=== PATIENT | female | born 1950 | race Caucasian/White ===

== ENCOUNTER 2018-10-14 17:20 | Emergency (ER) | payer OTHER ==
[~2018-10-14] VITALS: Ht 157.5 cm; Wt 104.3 kg
[2018-10-14 18:20] VITALS: BP 141/67
[2018-10-14] MEDS ORDERED: HYDROcodone/APAP 5/325MG 1 TAB TABLET PO ONE (18:45)
--- NOTE | 2018-10-14 19:22 | PHYS DOC ---
Adult General Chief Complaint Chief Complaint: KNEE SWELLING HPI HPI Patient is a 68 year old female who presents with states she stood up last night out of her chair began having a steering hot sharp pain in her right knee. Patient states she's also had weeks of right hip pain also. Patient's main complaint today is her right knee. The knee does not look swollen compared to the left knee. She rates her pain a 5 out of 10 after movement. The pain does not radiate. Review of Systems Review of Systems Constitutional: Denies fever or chills [] Eyes: Denies change in visual acuity, redness, or eye pain [] HENT: Denies nasal congestion or sore throat [] Respiratory: Denies cough or shortness of breath [] Cardiovascular: No additional information not addressed in HPI [] GI: Denies abdominal pain, nausea, vomiting, bloody stools or diarrhea [] : Denies dysuria or hematuria [] Musculoskeletal: Denies back pain. Right knee joint pain [] Integument: Denies rash or skin lesions [] Neurologic: Denies headache, focal weakness or sensory changes [] Endocrine: Denies polyuria or polydipsia [] All other systems were reviewed and found to be within normal limits, except as documented in this note. Current Medications Current Medications Current Medications Medications (Trade) Dose Ordered Sig/Tammie Start Time Stop Time Status Last Admin Dose Admin Acetaminophen/ Hydrocodone Bitart (Lortab 5/325) 1 tab 1X ONCE 10/14/18 18:45 10/14/18 18:47 DC 10/14/18 19:30 1 TAB Allergies Allergies Allergies Coded Allergies Type Severity Reaction Last Updated Verified Penicillins Allergy Intermediate 10/14/18 Yes Physical Exam Physical Exam Constitutional: Well developed, well nourished, no acute distress, non-toxic appearance. [] HENT: Normocephalic, atraumatic, bilateral external ears normal, oropharynx moist, no oral exudates, nose normal. [] Eyes: PERRLA, EOMI, conjunctiva normal, no discharge. [] Neck: Normal range of motion, no tenderness, supple, no stridor. [] Cardiovascular:Heart rate regular rhythm, no murmur [] Lungs & Thorax: Bilateral breath sounds clear to auscultation [] Abdomen: Bowel sounds normal, soft, no tenderness, no masses, no pulsatile masses. [] Skin: Warm, dry, no erythema, no rash. [] Back: No tenderness, no CVA tenderness. [] Extremities: No tenderness, no cyanosis, no clubbing, ROM intact, bilateral pedal 1+ edema. [] Neurologic: Alert and oriented X 3, normal motor function, normal sensory function, no focal deficits noted. [] Psychologic: Affect normal, judgement normal, mood normal. [] Current Patient Data Vital Signs Vital Signs Date Time Temp Pulse Resp B/P (MAP) Pulse Ox O2 Delivery O2 Flow Rate FiO2 10/14/18 19:30 16 98 Room Air 10/14/18 18:20 98.0 81 141/67 (91) 98.0 EKG EKG [] Radiology/Procedures Radiology/Procedures [] Course & Med Decision Making Course & Med Decision Making Patient is a 68 year old female who presents with states she stood up last night out of her chair began having a searing hot sharp pain in her right knee. Patient states she's also had weeks of right hip pain also. Patient's main complaint today is her right knee. The knee does not look swollen compared to the left knee. She rates her pain a 5 out of 10 after movement. The pain does not radiate. Alert and oriented. Speaks in full clear sentences. Patient's been using a cane to help her walk since the pain started last night. Patient states she last took 2 Tylenol and 2 ibuprofen at 1430. Patient has full range of motion of her knee but is very painful when she straightens the leg. Patient can bear weight on the leg. Patient denies any other injury or injury to her right hip that has recently started to hurt her. Pedal pulses present with bilateral 1+ edema. Skin pink warm and dry. No tenderness with palpation. Hip x-ray and knee x-ray show no obvious acute findings but does show some arthritis. X-rays read by Dr. Samayoa. Neal Disclaimer Neal Disclaimer This electronic medical record was generated, in whole or in part, using a voice recognition dictation system. Departure Departure Impression: Primary Impression: Hip pain Additional Impression: Knee pain Disposition: HOME, SELF-CARE Condition: STABLE Referrals: UNKNOWN PCP NAME (PCP) Patient Instructions: Arthritis, Degenerative-Brief, Hip Pain, Knee Pain Additional Instructions: Follow-up with her primary care provider. Take medication as prescribed. Try using a heating pad. Scripts Hydrocodone/Apap 5-325 (NORCO 5-325 TABLET) 1 Each Tablet 1 TAB PO PRN Q6HRS PRN for PAIN, #6 TAB 0 Refills Prov: ANDREW JOHNS APRN 10/14/18 Problem Qualifiers Primary Impression: Hip pain Laterality: right Qualified Codes: M25.551 - Pain in right hip Additional Impression: Knee pain Chronicity: acute Laterality: right Qualified Codes: M25.561 - Pain in right knee ANDREW JOHNS APRN Oct 14, 2018 19:22
[2018-10-14] MEDS ORDERED: HYDR-3164 PO (21:24)
--- NOTE | 2018-10-14 22:37 | RAD ---
KNEE RIGHT 3V History: RIGHT KNEE PAIN AFTER STANDING UP X1 DAY AGO Comparison: None. Findings: 3 views of the right knee are submitted. No acute fracture or dislocation is identified. There is mild tricompartmental osteoarthritic change. There is some vascular calcification. There is superior patellar enthesophyte. Impression: 1. No acute fracture is identified. Electronically signed by: Cj Delong MD (10/14/2018 10:34 PM) [facility]
--- NOTE | 2018-10-14 22:46 | RAD ---
HIP RIGHT 2 VIEW History: CHRONIC RIGHT HIP PAIN. INCREASED PAIN AFTER FALL X1 DAY AGO Comparison: None. Findings: 2 views of the right hip are submitted. No acute fracture or dislocation is identified by radiographs. Impression: 1. No acute radiographic abnormality is identified. Electronically signed by: Cj Delong MD (10/14/2018 10:43 PM) [facility]
== END 2018-10-14 22:01 | disposition home or self-care (01) ==
LOC: ER 17:20
DX: M25.551 Pain in right hip (principal); M25.561 Pain in right knee; Z88.0 Allergy status to penicillin
CPT/HCPCS: 73502; 73562; 99283

== ENCOUNTER 2019-10-03 16:52 | Observation (INO) | payer MEDICARE, OTHER ==
[~2019-10-03] VITALS: Ht 160 cm; Wt 109.0 kg
[~2019-10-03 16:52] MED LIST: HYDR-3164 PO
[2019-10-03] MEDS ORDERED: IV NORMAL SALINE 1000ML BAG 1,000 ML IV ONE ×3 (17:45→19:00)
[2019-10-03] MEDS ORDERED: ALBUTEROL SULFATE 2.5 MG/3 ML NEBU. NEB ONE (17:45)
[2019-10-03] MEDS ORDERED: ACETAMINOPHEN 500 MG TABLET PO ONE (17:45)
--- NOTE | 2019-10-03 17:48 | PHYS DOC ---
Past Medical History Past Medical History: Asthma, Depression, Diabetes-Type II, High Cholesterol, Hypertension, Other Additional Past Medical Histor: CHRONIC SOA/CHRONIC CHEST PAIN Past Surgical History: Cholecystectomy, Tubal ligation, Other Additional Past Surgical Histo: bilateral knee scopes Smoking Status: Never Smoker Alcohol Use: None Drug Use: None Adult General Chief Complaint Chief Complaint: MULTIPLE COMPLAINTS [place] [employer] [facility] HPI Patient is a 69 year old female, accompanied by her daughter, who presents to the emergency department with complaints of shaking, chills, and fever since 2:00 this afternoon. Patient states that she also experienced an episode of nausea and vomiting today. She reports that she feels like she might have a urinary tract infection. However, she denies any dysuria, hematuria, increased urinary frequency, or abnormal odor to her urine. Patient denies any ear pain, headache, sore throat, palpitations, swelling of extremities, wheezing, diarrhea, or abdominal pain. She reports that she has problems with chronic c hest pain and shortness of breath and states that she has had a nonproductive cough for over a month and a half. She currently denies any chest pain or shortness of breath. She currently rates her pain a 4 out of 10 on the pain scale, she denies any alleviating factors. Patient states she does have diabetes and has had her blood sugar running in the 200s for the past month with the onset of her cough, she denies any polyphagia. Patient reports polydipsia. Review of Systems Review of Systems Complete ROS is negative unless otherwise noted in HPI. Current Medications Current Medications Current Medications Medications (Trade) Dose Ordered Sig/Tammie Start Time Stop Time Status Last Admin Dose Admin Acetaminophen (Tylenol) 1,000 mg 1X ONCE 10/03/19 17:45 10/03/19 17:46 DC 10/03/19 17:46 1,000 MG Albuterol Sulfate (Ventolin Neb Soln) 2.5 mg 1X ONCE 10/03/19 17:45 10/03/19 17:46 DC 10/03/19 17:55 2.5 MG Sodium Chloride 1,000 ml @ 1,000 mls/hr 1X ONCE 10/03/19 17:45 10/03/19 18:44 DC 10/03/19 17:47 1,000 MLS/HR Allergies Allergies Allergies Coded Allergies Type Severity Reaction Last Updated Verified Penicillins Allergy Intermediate 10/14/18 Yes Physical Exam Physical Exam See Above Constitutional: Well developed, well nourished, no acute distress, non-toxic appearance, obese. [] HENT: Normocephalic, atraumatic, bilateral external ears normal, oropharynx dry, no oral exudates, nose normal. [] Eyes: PERRLA, EOMI, conjunctiva normal, no discharge. [] Neck: Normal range of motion, no stridor. [] Cardiovascular:Heart rate regular tachycardic rhythm, no murmur [] Lungs & Thorax: Bilateral breath sounds clear to auscultation, Respirations ev en and unlabored, no retractions, no respiratory distress [] Abdomen: Bowel sounds normal, soft, no tenderness, no masses, no pulsatile masses. [] Skin: Flushed, hot, dry, no rash. [] Back: Bilateral CVA tenderness. [] Extremities: No cyanosis, ROM intact, no edema. [] Neurologic: Alert and oriented X 3, no focal deficits noted. [] Psychologic: Affect normal, judgement normal, mood normal. [] Current Patient Data Vital Signs Vital Signs Date Time Temp Pulse Resp B/P (MAP) Pulse Ox O2 Delivery O2 Flow Rate FiO2 10/03/19 18:15 118 147/65 (92) 97 Room Air 10/03/19 16:56 99.7 20 99.7 Lab Values Laboratory Tests Test 10/03/19 16:56 10/03/19 17:15 10/03/19 17:37 Urine Collection Type Unknown Urine Color Yellow Urine Clarity Clear Urine pH 6.0 Urine Specific [place] 1.015 Urine Protein 30 mg/dL (NEG-TRACE) Urine Glucose (UA) Negative mg/dL (NEG) Urine Ketones (Stick) Negative mg/dL (NEG) Urine Blood Trace (NEG) Urine Nitrite Positive (NEG) Urine Bilirubin Negative (NEG) Urine Urobilinogen Dipstick 0.2 mg/dL (0.2 mg/dL) Urine Leukocyte Esterase Moderate (NEG) Urine RBC 1-2 /HPF (0-2) Urine WBC 5-10 /HPF (0-4) Urine Squamous Epithelial Cells Mod /LPF Urine Bacteria Many /HPF (0-FEW) Urine Mucus Slight /LPF White Blood Count 11.7 x10^3/uL (4.0-11.0) H Red Blood Count 3.46 x10^6/uL (3.50-5.40) L Hemoglobin 10.4 g/dL (12.0-15.5) L Hematocrit 30.6 % (36.0-47.0) L Mean Corpuscular Volume 88 fL (79-100) Mean Corpuscular Hemoglobin 30 pg (25-35) Mean Corpuscular Hemoglobin Concent 34 g/dL (31-37) Red Cell Distribution Width 13.8 % (11.5-14.5) Platelet Count 228 x10^3/uL (140-400) Neutrophils (%) (Auto) 85 % (31-73) H Lymphocytes (%) (Auto) 9 % (24-48) L Monocytes (%) (Auto) 4 % (0-9) Eosinophils (%) (Auto) 2 % (0-3) Basophils (%) (Auto) 1 % (0-3) Neutrophils # (Auto) 9.9 x10^3/uL (1.8-7.7) H Lymphocytes # (Auto) 1.1 x10^3/uL (1.0-4.8) Monocytes # (Auto) 0.4 x10^3/uL (0.0-1.1) Eosinophils # (Auto) 0.2 x10^3/uL (0.0-0.7) Basophils # (Auto) 0.1 x10^3/uL (0.0-0.2) Segmented Neutrophils % 66 % (35-66) Band Neutrophils % 23 % (0-9) H Lymphocytes % 9 % (24-48) L Eosinophils % 1 % (0-5) Basophils % 1 % (0-3) Toxic Granulation Slight Platelet Estimate Adequate (ADEQUATE) Polychromasia Slight Prothrombin Time 13.9 SEC (11.7-14.0) Prothrombin Time INR 1.1 (0.8-1.1) Activated Partial Thromboplast Time 25 SEC (24-38) D-Dimer (Yuliya) 1.03 ug/mlFEU (0.00-0.50) H Sodium Level 141 mmol/L (136-145) Potassium Level 4.3 mmol/L (3.5-5.1) Chloride Level 107 mmol/L (98-107) Carbon Dioxide Level 22 mmol/L (21-32) Anion Gap 12 (6-14) Blood Urea Nitrogen 29 mg/dL (7-20) H Creatinine 1.3 mg/dL (0.6-1.0) H Estimated GFR (Cockcroft-Gault) 40.9 BUN/Creatinine Ratio 22 (6-20) H Glucose Level 210 mg/dL (70-99) H Lactic Acid Level 3.2 mmol/L (0.4-2.0) H Calcium Level 8.8 mg/dL (8.5-10.1) Magnesium Level 1.2 mg/dL (1.8-2.4) L Total Bilirubin 0.4 mg/dL (0.2-1.0) Aspartate Amino Transferase (AST) 10 U/L (15-37) L Alanine Aminotransferase (ALT) 17 U/L (14-59) Alkaline Phosphatase 106 U/L (46-116) Creatine Kinase 40 U/L (26-192) Creatine Kinase MB (Mass) < 0.5 ng/mL (0.0-3.6) Creatine Kinase MB Relative Index % (0-4) Troponin I Quantitative < 0.017 ng/mL (0.000-0.055) OI-Glc-A-Type Natriuretic Peptide 238 pg/mL (0-124) H Total Protein 6.4 g/dL (6.4-8.2) Albumin 3.1 g/dL (3.4-5.0) L Albumin/Globulin Ratio 0.9 (1.0-1.7) L Influenza Type A Antigen Negative (NEGATIVE) Influenza Type B Antigen Negative (NEGATIVE) Laboratory Tests 10/03/19 17:15 Laboratory Tests 10/03/19 17:15 EKG EKG 1713-sinus tachycardia, rate of 113, QRS(T) Contour abnormality no STEMI, read by Dr. Mcgovern Radiology/Procedures Radiology/Procedures PROCEDURE: CHEST PA & LATERAL Exam: Chest 2 views INDICATION: Short of air, cough for one month TECHNIQUE: Frontal and lateral views the chest Comparisons: None FINDINGS: The cardiomediastinal silhouette and pulmonary vessels are within normal limits. The lung and pleural spaces are clear. IMPRESSION: No acute cardiopulmonary process. PROCEDURE: LUNG VENT/PERFUSION SCAN(VQ) Lung scan 10/03/2019 CLINICAL HISTORY: Elevated d-dimer. Shortness of breath. TECHNIQUE: After the administration of 13 mCi of xenon-133 gas, ventilation images of both lungs were obtained using the gamma camera. After the intravenous administration of 5.5 mCi of technetium 99m MAA, perfusion images of both lungs were obtained using the gamma camera. FINDINGS: Comparison is made to PA and lateral chest radiographs performed earlier today. These demonstrate no acute pulmonary infiltrate. Homogeneous ventilation/perfusion to both lungs is seen. No ventilation or perfusion defect is noted. These findings are consistent with a normal lung scan. IMPRESSION: Normal lung scan. [] Course & Med Decision Making Course & Med Decision Making Pertinent Labs and Imaging studies reviewed. (See chart for details) Patient is a 71-year-old female who presented to the emergency room multiple complaints. Work-up included a CBC, CMP, UA, chest x-ray, d-dimer, cardiac enzymes, BNP, PT/INR, and V/Q chest scan CBC revealed a white blood cell count of 11.7, RBCs of 3.46, Hgb 10.4, HCT 30.6, otherwise unremarkable; PT and INR within normal limits, d-dimer elevated at 1.03; CMP revealed a BUN of 29, creatinine of 1.3, glucose of 210, lactic acid of 3.2, magnesium of 1.2, BNP of 238, normal CK index and troponin; Urinalysis revealed a nitrite positive UTI with 5-10 white blood cells and 1-2 red blood cells present; rapid influenza testing was negative. Chest x-ray was normal as was the ventilation perfusion scan. Patient was given a one-time dose of Lovenox while awaiting VQ scan she was also given 400 mg of Cipro in the emergency department, 2000 mL of normal saline, and normal saline at 150 an hour was initiated. 1725-spoke with Dr. Demarco who is the admitting physician, and care was assumed following discussion of patient will admit patient as observation status to [place] d/surg for urinary tract infection and sepsis. Dr. Demarco aware of pending imaging results related to the elevated d-dimer, will notify of any abnormal results. Patient's vital signs stable. Patient remains afebrile, appears nontoxic, respirations even and unlabored. Patient will be admitted to the med/surg floor. Patient's case and plan of care also discussed with Dr. Pro [] Neal Disclaimer Neal Disclaimer This electronic medical record was generated, in whole or in part, using a voice recognition dictation system. Departure Departure Impression: Primary Impression: UTI (urinary tract infection) Additional Impression: Sepsis Disposition: 09 ADMITTED INPATIENT Admitting Physician: Babs Demarco Condition: STABLE Referrals: KARAN PEREZ MD (PCP) Problem Qualifiers Primary Impression: UTI (urinary tract infection) Urinary tract infection type: site unspecified Hematuria presence: without hematuria Qualified Codes: N39.0 - Urinary tract infection, site not specified Additional Impression: Sepsis Sepsis type: sepsis due to unspecified organism Sepsis acute organ dysfunction status: unspecified Qualified Codes: A41.9 - Sepsis, unspecified organism DOROTHY NOBLES [employer] Oct 03, 2019 17:48
--- NOTE | 2019-10-03 17:52 | RAD ---
Exam: Chest 2 views INDICATION: Short of air, cough for one month TECHNIQUE: Frontal and lateral views the chest Comparisons: None FINDINGS: The cardiomediastinal silhouette and pulmonary vessels are within normal limits. The lung and pleural spaces are clear. IMPRESSION: No acute cardiopulmonary process. Electronically signed by: Ambar Ramirez MD (10/03/2019 5:49 PM) [id number]
[2019-10-03 17:56] LABS: BASO # 0.1 x10^3/uL (0.0-0.2); BASO % 1 % (0-3); EOS # 0.2 x10^3/uL (0.0-0.7); EOS % 2 % (0-3); HEMATOCRIT 30.6 % (36.0-47.0); HEMOGLOBIN 10.4 g/dL (12.0-15.5); LYMPH # 1.1 x10^3/uL (1.0-4.8); LYMPH % 9 % (24-48); MEAN CORPUSCULAR HEMOGLOBIN 30 pg (25-35); MEAN CORPUSCULAR HGB CONC 34 g/dL (31-37); MEAN CORPUSCULAR VOLUME 88 fL (79-100); MONO # 0.4 x10^3/uL (0.0-1.1); MONO % 4 % (0-9); NEUT # 9.9 x10^3/uL (1.8-7.7); NEUT % 85 % (31-73); PLATELET COUNT 228 x10^3/uL (140-400); RED BLOOD COUNT 3.46 x10^6/uL (3.50-5.40); RED CELL DISTRIBUTION WIDTH 13.8 % (11.5-14.5); WHITE BLOOD COUNT 11.7 x10^3/uL (4.0-11.0)
[2019-10-03 18:05] LABS: PROTHROMBIN TIME PATIENT 13.9 SEC (11.7-14.0)
[2019-10-03 18:08] LABS: CALCIUM 8.8 mg/dL (8.5-10.1); CREATININE 1.3 mg/dL (0.6-1.0); GFR 40.9; POTASSIUM 4.3 mmol/L (3.5-5.1)
[2019-10-03 18:14] LABS: ALBUMIN 3.1 g/dL (3.4-5.0); ALBUMIN/GLOBULIN RATIO 0.9 (1.0-1.7); MAGNESIUM 1.2 mg/dL (1.8-2.4); TOTAL BILIRUBIN 0.4 mg/dL (0.2-1.0); TOTAL PROTEIN 6.4 g/dL (6.4-8.2)
[2019-10-03 18:15] LABS: D-DIMER 1.03 ug/mlFEU (0.00-0.50)
[2019-10-03 18:18] LABS: BILIRUBIN,URINE NEGATIVE (NEG); CLARITY,URINE CLEAR; COLOR,URINE YELLOW; NITRITE,URINE POSITIVE (NEG); PROTEIN,URINE 30 mg/dL (NEG-TRACE); UROBILINOGEN,URINE 0.2 mg/dL (0.2 mg/dL)
[2019-10-03 18:29] LABS: BACTERIA,URINE MANY /HPF (0-FEW); SQUAMOUS EPITHELIAL CELL,UR MOD /LPF
[2019-10-03 18:36] LABS: INFLUENZA A PATIENT NEGATIVE (NEGATIVE); INFLUENZA B PATIENT NEGATIVE (NEGATIVE)
[2019-10-03 18:41] LABS: CREATINE KINASE 40 U/L (26-192)
[2019-10-03 18:44] LABS: % BANDS 23 % (0-9); % BASOS 1 % (0-3); % EOS 1 % (0-5); % LYMPHS 9 % (24-48); % SEGS 66 % (35-66)
[2019-10-03 18:45] LABS: PLT ESTIMATE ADEQUATE (ADEQUATE); POLYCHROMASIA SLIGHT
[2019-10-03 18:46] LABS: TOXIC GRANULATION SLIGHT
[2019-10-03] MEDS ORDERED: CIPROFLOXACIN 400MG PREMIX 200 ML IV ONE (19:00)
--- NOTE | 2019-10-03 19:21 | EKG ---
[facility] [address] [place] [address] Test Date: 2019-10-03 Test Time: 17:13:23 Pat Name: ILAN REA Department: Room: Gender: F Head Pumper: : [id number] Requested By: DOROTHY NOBLES Order Number: [id number] Reading MD: Measurements Intervals [place] Rate: 113 P: -114 HI: 138 QRS: 45 QRSD: 68 T: 50 QT: 364 QTc: 506 Interpretive Statements SINUS TACHYCARDIA QRS(T) CONTOUR ABNORMALITY CONSIDER ANTEROSEPTAL MYOCARDIAL DAMAGE POSSIBLY ABNORMAL ECG RI6.01 No previous ECG available for comparison
--- NOTE | 2019-10-03 21:18 | RAD ---
Lung scan 10/03/2019 CLINICAL HISTORY: Elevated d-dimer. Shortness of breath. TECHNIQUE: After the administration of 13 mCi of xenon-133 gas, ventilation images of both lungs were obtained using the gamma camera. After the intravenous administration of 5.5 mCi of technetium 99m MAA, perfusion images of both lungs were obtained using the gamma camera. FINDINGS: Comparison is made to PA and lateral chest radiographs performed earlier today. These demonstrate no acute pulmonary infiltrate. Homogeneous ventilation/perfusion to both lungs is seen. No ventilation or perfusion defect is noted. These findings are consistent with a normal lung scan. IMPRESSION: Normal lung scan. Electronically signed by: Kodi Fodr MD (10/03/2019 9:15 PM) [id number]
--- NOTE | 2019-10-03 22:19 | NUR ---
Pt. just arrived from ED via w/c with UTI and sepsis. She is A/O x4 and will make needs known. Orientated to unit. Daughter @ BS.
[2019-10-03] MEDS ORDERED: LOSA-73 PO (22:49)
[2019-10-03] MEDS ORDERED: INSU100V31 SQ ×2 (22:49)
[2019-10-03] MEDS ORDERED: INSU100V13 SQ (22:49)
[2019-10-03] MEDS ORDERED: INSU100C4 SQ (22:49)
[2019-10-03] MEDS ORDERED: SERT50TA PO (22:49)
[2019-10-03] MEDS ORDERED: GABA300C18 PO (22:49)
[2019-10-03] MEDS ORDERED: CRESTOR5 MG PO (22:49)
[2019-10-03 23:00] VITALS: BP 113/42
[2019-10-03] MEDS ORDERED: ONDANSETRON ODT 4 MG TAB.RAPDIS. PO PRN (23:00)
[2019-10-03] MEDS ORDERED: INSULIN GLARGINE SYRINGE. SQ SCH (23:15)
[2019-10-03] MEDS ORDERED: MAGNESIUM SULFATE 2GM 50 ML IV ONE (23:15)
[2019-10-03] MEDS ORDERED: SERTRALINE 50 MG TABLET. PO SCH (23:15)
[2019-10-03] MEDS ORDERED: GABAPENTIN 100 MG CAPSULE. PO SCH (23:15)
[2019-10-03] MEDS ORDERED: INSULIN DETEMIR 90 UNIT SQ PRN (23:15)
[2019-10-03] MEDS: ACETAMINOPHEN 325 MG TABLET. PO PRN (23:59)
[2019-10-04 03:00] VITALS: BP 124/43
[2019-10-04] MEDS ORDERED: INSULIN LISPRO 300 UNITS/3 ML VIAL. SQ SCH ×4 (07:00→17:00)
[2019-10-04 07:55] LABS: CALCIUM 8.1 mg/dL (8.5-10.1); CREATININE 1.1 mg/dL (0.6-1.0); GFR 49.5; MAGNESIUM 1.7 mg/dL (1.8-2.4); POTASSIUM 3.8 mmol/L (3.5-5.1)
--- NOTE | 2019-10-04 07:56 | PDOC1 ---
H & P. HPI: Ms. Gallagher is a 69-year-old female with past medical history of type 2 diabetes, chronic kidney disease stage II, hypertension, peripheral artery disease, chronic fatigue, morbid obesity, who presented to the emergency room yesterday for feeling unwell, chills, fatigue, nausea, vomiting, and subjective fever at home. She reported feeling as though she may have a UTI, although she denied dysuria, frequency, urgency. She reports a history of recurrent UTIs that were lacking for symptoms apart from feeling unwell. In the emergency room she was noted to be mildly tachycardic, with Tmax of 99.7. Her labs were remarkable for positive nitrites and leukoesterase on UA with small amount of blood, mild leukocytosis with left shift, elevated lactic acid at 3.2, negative flu swab, mildly elevated d-dimer. Due to the elevated d-dimer, a CT chest was unable to be performed, I assume due to mild CKD. A VQ scan was performed and was negative for PE. She was given Cipro and IV fluids in the emergency room and was admitted for further evaluation and management. She is feeling much better this morning and feels comfortable to follow up soon early next week and go home with PO meds as we wait for urine culture results. ROS: Constitutional: Admits subjective fever, fatigue, chills HEENT: Denies sore throat, vision changes Cardio: Denies chest pain, dyspnea with exertion, syncope, palpitations, edema Pulmonary: Denies shortness of breath, cough, wheezing GI: Admits nausea, denies vomiting, diarrhea, constipation : Denies dysuria, frequency, urgency, incontinence Skin: Denies new lesions Neuro: Denies weakness, paresthesias PMH: As above. FAMILY HX: Family history significant for diabetes, hypertension, chronic kidney disease, asthma, alcoholism. SOCIAL HX: Never smoker, no significant alcohol or drug use. SURGICAL HX: Status post cholecystectomy, tubal ligation MEDS: Reviewed and reconciled ALLERGIES: Reviewed PE: Alert, oriented, no acute distress EOMI, sclera non-icteric Neck supple RRR, no murmur CTAB, no wheezes, crackles or rhonchi Soft, NT, ND, normal bowel sounds, no rebound, guarding. Negative Baptiste's sign. No edema, cyanosis. Normal capillary refill. Calm, cooperative, mood/affect within normal limits ASSESSMENT & PLAN: Acute UTI likely Lactic acidosis, resolved Hypomagnesemia, resolved Type 2 diabetes Chronic kidney disease Hypertension Peripheral artery disease Chronic fatigue Morbid obesity Discussed option to follow up closely as outpt with dc today with PO Cipro pending urine culture/sensitivities and pt is agreeable to this plan. She is feeling well and all questions were answered. CHIP CORTEZ MD Oct 04, 2019 07:56
[2019-10-04 07:59] VITALS: BP 96/40
[2019-10-04 08:23] VITALS: BP 96/40
[2019-10-04] MEDS ORDERED: ONDA4TAB12 PO (08:47)
[2019-10-04] MEDS ORDERED: CIPR250T30 PO (08:47)
[2019-10-04] MEDS ORDERED: CIPROFLOXACIN 200MG PREMIX 100 ML IV SCH (09:00)
[2019-10-04] MEDS ORDERED: LOSARTAN POTASSIUM 50 MG TABLET. PO SCH (09:00)
[2019-10-04] MEDS: ACETAMINOPHEN 325 MG TABLET. PO PRN (10:10)
--- NOTE | 2019-10-04 11:57 | NUR ---
Discharge Note: ILAN REA [address] Discharge instructions and discharge home medications reviewed with Patient and a copy given. All questions have been answered and understanding verbalized. The following instructions and handouts were given: patient visit report, medication information, education. Discontinued lines and drains: peripheral IV, tip intact. Patient discharged to home with self care via private vehicle. Patient left unit awake, in stable condition, with all personal belongings. Rx called to [facility], [place] with pharmacist (Fredy).
[2019-10-04] MEDS ORDERED: ROSUVASTATIN CALCIUM 25 MG PO SCH (21:00)
== END 2019-10-04 11:55 | disposition home or self-care (01) ==
LOC: ER 16:52 → 5 SOUTH 18:52
PROVIDERS: ADMIT Family Medicine; ATTEND Family Medicine
DX: A41.9 Sepsis, unspecified organism (principal); N39.0 Urinary tract infection, site not specified; I12.9 Hypertensive chronic kidney disease with stage 1 through stage 4 chronic kidney disease, or unspecified chronic kidney disease; N18.2 Chronic kidney disease, stage 2 (mild); E11.22 Type 2 diabetes mellitus with diabetic chronic kidney disease; I73.9 Peripheral vascular disease, unspecified; R11.2 Nausea with vomiting, unspecified; R53.83 Other fatigue; J45.909 Unspecified asthma, uncomplicated; F32.9 Major depressive disorder, single episode, unspecified; Z98.890 Other specified postprocedural states; E83.42 Hypomagnesemia; E87.2 Acidosis; E66.01 Morbid (severe) obesity due to excess calories; Z90.49 Acquired absence of other specified parts of digestive tract; Z98.51 Tubal ligation status
CPT/HCPCS: 36415; 71046; 78582; 80048; 80053; 81001; 82553; 82962; 83605; 83735; 83880; 84484; 85007; 85025; 85379; 85610; 85730; 87040; 87086; 87205; 87804; 93005; 94640; 96361; 96365; 96366; 96367; 96372; 96376; 99285; A9540; A9558; G0378; J0744; J1650; J1815; J3475; J7030; 96374; G0379; J7613; Q0162